=== PATIENT | female | born 1990 | race Caucasian/White ===

== ENCOUNTER 2016-07-26 16:44 | Emergency (ER) | payer MEDICAID ==
[~2016-07-26] VITALS: Ht 162.6 cm; Wt 55.0 kg
[2016-07-26 16:54] VITALS: BP 124/73
== END 2016-07-27 04:52 | disposition left against medical advice (07) ==
LOC: ER 16:44
DX: F41.9 Anxiety disorder, unspecified (principal); Z53.21 Procedure and treatment not carried out due to patient leaving prior to being seen by health care provider

== ENCOUNTER 2016-09-03 21:42 | Emergency (ER) | payer MEDICAID ==
[~2016-09-03] VITALS: Ht 162.6 cm; Wt 59.0 kg
[2016-09-04 01:03] VITALS: BP 112/62
== END 2016-09-04 01:04 | disposition home or self-care (01) ==
LOC: ER 21:42
DX: F41.0 Panic disorder [episodic paroxysmal anxiety] (principal); Z98.890 Other specified postprocedural states
CPT/HCPCS: 99284